=== PATIENT | female | born 2000 | race Caucasian/White ===

== ENCOUNTER 2020-06-26 19:20 | Emergency (ER) | payer BC, OTHER ==
[~2020-06-26] VITALS: Ht 168 cm; Wt 62.3 kg
[2020-06-26] MEDS ORDERED: SERT25TA5 (19:34)
[2020-06-26] MEDS ORDERED: CHOL500049 (19:34)
[2020-06-26] MEDS ORDERED: FERR325T18 (19:34)
[2020-06-26] MEDS ORDERED: KETOROLAC 60 MG/2 ML VIAL IM STA (20:02)
[2020-06-26 20:13] LABS: BILIRUBIN,URINE NEGATIVE (NEGATIVE); CLARITY,URINE CLEAR; COLOR,URINE YELLOW; GLUCOSE, URINE (UA) NEGATIVE (NEGATIVE); KETONES,URINE NEGATIVE (NEGATIVE); LEUKOCYTE ESTERASE ,URINE NEGATIVE (NEGATIVE); NITRITE,URINE NEGATIVE (NEGATIVE); PROTEIN,URINE NEGATIVE (NEGATIVE)
--- NOTE | 2020-06-26 20:17 | ED Back Pain ---
General Chief Complaint: Back Problems Stated Complaint: BACK PAIN Nursing Triage Note: c/o upper/lower back pain x2 days after tubing at [place]. Nursing Sepsis Screen: No Definite Risk Source of Information: Patient Exam Limitations: No Limitations (BAKARI ARAUJO) History of Present Illness Date Seen by Provider: Jun 26, 2020 Time Seen by Provider: 19:39 Initial Comments This is a 19 y/o F who presents to the ED with upper back pain x 1 week. States the pain onset after she went tubing and tanya-diving; denies falling or any trauma. States the pain is midline and goes from her C-spine to T-spine but it is worse in the middle of back. Reports associated tension KIRKPATRICK. Reports the pain is constant, sharp, and is exacerbated with flexion/extension of her spine and movement of upper arms. Rates pain a 7/10. Denies any F, chills, N/V/D, neurological deficits, dysuria, loss of bowel/bladder control or any other sx. Has taken Ibuprofen for pain with some relief; last dose was yesterday morning. 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 Location: C-Spine, T-Spine Timing/Duration: 6-7 Days Severity: Moderate Pain/Injury Location: Back Radiation: Other (none) Modifying Factors: Improves With Immobilization; Worse With Movement; Improves With Pain Medication, Improves With Rest Associated Symptoms: No fever, No weakness, No numbness in legs/feet, No tingling in legs/feet, No sensory/motor loss, No lower back pain, No loss of bladder control, No loss of bowel control; other (KIRKPATRICK) (BAKARI ARAUJO) Timing/Duration: 6-7 Days Severity: Moderate Pain/Injury Location: Back, Neck Modifying Factors: Improves With Immobilization; Worse With Movement; Improves With Pain Medication Associated Symptoms: No fever, No weakness, No sensory/motor loss, No lower back pain (HAYLEY NULL MD) Allergies and Home Medications Allergies Coded Allergies: No Known Drug Allergies (Unverified , 06/26/20) Patient Home Medication List Home Medication List Reviewed: Yes (HAYLEY NULL MD) Review of Systems Constitutional: No chills, No diaphoresis, No fever Respiratory: no symptoms reported Cardiovascular: no symptoms reported Gastrointestinal: No abdominal pain, No constipation, No diarrhea, No nausea, No vomiting Genitourinary: No decreased output, No discharge, No dysuria, No frequency, No hematuria, No incontinence, No pain LMP: Jun 19, 2020 [facility] Musculoskeletal: see HPI, back pain, muscle pain, muscle stiffness; No muscle weakness Skin: no symptoms reported Psychiatric/Neurological: No Symptoms Reported (HAYLEY NULL MD) Past Xltnsii-Qcupli-Epjqva Hx Past Med/Social Hx: Reviewed Nursing Past Med/Soc Hx (HAYLEY NULL MD) Patient Social History Alcohol Use: Denies Use Recreational Drug Use: No Smoking Status: Never a Smoker 2nd Hand Smoke Exposure: No Recent Foreign Travel: No Contact w/Someone Who Travel: No Recent Infectious Disease Expo: No Recent Hopitalizations: No Physical Abuse: No Sexual Abuse: No Mistreated: No Fear: No [facility] Seasonal Allergies Seasonal Allergies: No ([facility] Past Medical History Surgeries: No Respiratory: No Cardiac: No Neurological: No : No Last Menstrual Period: Jun 19, 2020 Genitourinary: No Gastrointestinal: No Musculoskeletal: No Endocrine: No HEENT: No Cancer: No Psychosocial: Yes Anxiety, Depression Integumentary: No Blood Disorders: No (low iron) ([facility] Family Medical History Reviewed Nursing Family Hx (HAYLEY NULL MD) Physical Exam Vital Signs Vital Signs - First Documented 06/26/20 19:26 Temp 36.6 Pulse 67 Resp 18 B/P (MAP) 133/77 (95) Pulse Ox 99 O2 Delivery Room Air (HAYLEY NULL MD) Vital Signs Capillary Refill : Less Than 3 Seconds ([facility] Height, Weight, BMI Height: '" Weight: lbs. oz. kg; 22.00 BMI Method: General Appearance: No Apparent Distress, WD/WN HEENT: TMs Normal, Normal ENT Inspection Neck: Full Range of Motion, Normal Inspection, Supple Cardiovascular: Regular Rate, Rhythm, No Edema, No Murmur Respiratory: Chest Non Tender, Lungs Clear, Normal Breath Sounds Back: Normal Inspection, CVA Tenderness (L) (mild); No CVA Tenderness (R); Other (pain to mid T spine with flexion/extension; no midline tenderness to C/T/L spine, no rashes noted; mild tense C/T spine paravertebral muscles ) Neurologic/Psychiatric: Alert, Oriented x3, No Motor/Sensory Deficits, Other (normal gait) Skin: Normal Color, Warm/Dry Lymphatic: No Adenopathy (BAKARI ARAUJO [facility]) General Appearance: No Apparent Distress, WD/WN Cardiovascular: Regular Rate, Rhythm, No Murmur Respiratory: Lungs Clear, Normal Breath Sounds Back: CVA Tenderness (L); No CVA Tenderness (R); Other (pain to mid T spine with flexion/extension; no midline tenderness to C/T/L spine, no rashes noted; mild tense C/T spine paravertebral muscles ) Extremity: Normal Range of Motion, Non Tender Neurologic/Psychiatric: Alert, Oriented x3 Skin: Normal Color, Warm/Dry (HAYLEY NULL MD) Progress/Results/Core Measures Results/Orders Lab Results Laboratory Tests Test 06/26/20 20:00 Range/Units Urine Color YELLOW Urine Clarity CLEAR Urine pH 6.0 5-9 Urine Specific [place] 1.025 H 1.016-1.022 Urine Protein NEGATIVE NEGATIVE Urine Glucose (UA) NEGATIVE NEGATIVE Urine Ketones NEGATIVE NEGATIVE Urine Nitrite NEGATIVE NEGATIVE Urine Bilirubin NEGATIVE NEGATIVE Urine Urobilinogen 0.2 < = 1.0 MG/DL Urine Leukocyte Esterase NEGATIVE NEGATIVE Urine RBC (Auto) NEGATIVE NEGATIVE Urine RBC NONE /HPF Urine WBC 0-2 /HPF Urine Crystals PRESENT H /LPF Urine Amorphous Sediment RARE RON URATES H /LPF Urine Bacteria TRACE /HPF Urine Casts NONE /LPF Urine Mucus MODERATE H /LPF Urine Culture Indicated NO (HAYLEY NULL MD) My Orders Orders - HAYLEY NULL MD Ua Culture If Indicated (06/26/20 20:00) Urine Bedside (06/26/20 20:00) Ketorolac Injection (Toradol Injection) (06/26/20 20:02) (HAYLEY NULL MD) Vital Signs/I&O 06/26/20 19:26 Temp 36.6 Pulse 67 Resp 18 B/P (MAP) 133/77 (95) Pulse Ox 99 O2 Delivery Room Air (HAYLEY NULL MD) Blood Pressure Mean: 95 Progress Progress Note : Time: 19:39 Progress Note Seen and evaluated. Presentation is concerning for muscle sprain/strain and nephrolithiasis. Will order Ketorolac 60mg IM, UA and Urine test at this time. Given pt's hx, will defer imaging at this time. [facility] Progress Note : Progress Note I have seen and evaluated the patient and agree with above except as indicated. Have directed the plan of care. UA ordered and Toradol 60 mg IM. Repeat evalua tion shows patient improved afterwards. OMT performed by student after patient permission. Appears to be more muscle strain related secondary to tubing event a week ago. We will continue outpatient ibuprofen and I will add Rx Flexeril. No indication for imaging currently. Discharged home with return precautions. Patient verbalize understanding instructions and agreement with plan. UA and UCG negative. (HAYLEY NULL MD) Departure Impression Primary Impression: Upper back strain Qualified Codes: S29.012A - Strain of muscle and tendon of back wall of thorax, initial encounter Disposition: HOME, SELF-CARE Condition: Improved Departure-Patient Inst. Decision time for Depature: 20:43 (HAYLEY NULL MD) Referrals: NO,LOCAL PHYSICIAN (PCP/Family) Primary Care Physician Patient Instructions: Upper Back Pain (DC), Muscle Strain (DC) Add. Discharge Instructions: All discharge instructions reviewed with patient and/or family. Voiced understanding. You may use ibuprofen 600 mg every 8 hours as needed for pain. Drink plenty of fluids. You may also take Tylenol/acetaminophen 1000 mg every 8 hours as needed for pain. Take other medications as directed. Follow-up with your DrAlis in a few days for recheck. Return for worse pain, fever, vomiting, weakness, breathing problems or other concerns as needed. Scripts Cyclobenzaprine HCl (Cyclobenzaprine HCl) 10 Mg Tablet 10 MG PO Q8H PRN for SPASMS, #15 TAB 0 Refills Prov: HAYLEY NULL MD 06/26/20 [facility] Jun 26, 2020 20:17 HAYLEY NULL MD Jun 26, 2020 20:45
[2020-06-26 20:19] LABS: AMORPHOUS SEDIMENT,UR RARE AMOR URATES /LPF; BACTERIA,URINE TRACE /HPF; WBC,URINE 0-2 /HPF
[2020-06-26] MEDS ORDERED: CYCL10TA9 PO (20:45)
[2020-06-26 20:51] VITALS: BP 127/71
== END 2020-06-26 20:51 | disposition home or self-care (01) ==
LOC: EDBD 19:22 → ER 19:22
DX: S29.012A Strain of muscle and tendon of back wall of thorax, initial encounter (principal); X50.9XXA Other and unspecified overexertion or strenuous movements or postures, initial encounter
CPT/HCPCS: 81000; 84703; 96372; 99284